=== PATIENT | male | born 1975 | race Caucasian/White ===

== ENCOUNTER 2018-05-28 05:50 | Day surgery (SDC) | payer OTHER ==
[~2018-05-28] VITALS: Ht 180.3 cm; Wt 93.0 kg
--- NOTE | 2018-05-28 08:05 | NUR ---
PT WAS RESTING, ALERT AND ORIENTED. I COULD TELL IMMEDIATELY THAT THE PT WAS SOMEWHAT UNNERVED BY THE EXPRESSION ON HIS FACE, AND THE WAY HE SPOKE TO ME. VERY RESPECTFUL, BUT FEARFUL. I SPENT TIME WORKING TO ENCOURAGE HIM, WITHOUT SHARING TOO MUCH INFORMATION. PT REQUESTED PRAYER, KAYLEY LIMA CAME IN TO CHECK WITH PT AND ENCOURAGE HIM WELL. WILL FOLLOW NEEDED
--- NOTE | 2018-05-28 10:07 | NUR ---
05/28/18 1007 Yris Rodriguez 0941 PT ARRIVED IN PACU SLEEPY. R SIDE OF NECK HAS DIMA INTACT AND COVERED WITH BACITRACIN. LUCAS DRAIN PRESENT. OXYGEN DECREASED TO 6L VIA MASK WITH SATS 100%. 0953 AWAKE C/O R SIDE NECK PAIN 5/10. FENTANYL 25MCG GIVEN IVP. OXYGEN REMOVED. SATS 95% ON RA. 1000 DR AT BEDSIDE TALKING WITH PT. TRANSPORT GUARDS AT BEDSIDE. 1002 C/O R SIDE NECK PAIN 7/10. FENTANYL 25MCG GIVEN IVP. ENCOURAGED DEEP BREATHING.
--- NOTE | 2018-05-28 10:33 | NUR ---
PATIENT RETURNED TO ROOM 10 AT 1025. PATIENT IS ON 2L OF 02 FOR SATS OF 96%. PATIENT HAS INCISION TO THE FRONT OF RIGHT EAR AND TO THE BACK OF RIGHT EAR/RIGHT NECK. INCISIONS ARE INTACT WITH SUTURES AND DIMA. LUCAS TO LOWER ASPECT OF NECK INCISION IS INTACT, TAPED TO CHEST, SEROSANGUOUS DRAINAGE NOTED IN TUBING. LUCAS TUBING STRIPPED TO MAINTAIN PATENCY. PATIENT IS VERY SLEEPY, AROUSABLE TO STIMULI, REPORTS PAIN 4/10 AND FALLS BACK TO SLEEP. X2 GUARDS IN ROOM WITH PATIENT. SCD'S ARE ON.
--- NOTE | 2018-05-28 10:39 | NUR ---
PATIENT TITRATED TO ROOM AIR AND SATS ARE 94 %
--- NOTE | 2018-05-28 11:10 | NUR ---
PATIENT OXYGEN SATS REMAIN 93-94% ON ROOM AIR. PATIENT HAS HAD SIPS OF WATER, HAS NOT HAD ANY FOOD YET. PATIENT IS MORE ORIENTED, REPORTS 4-5/10 DISCOMFORT, DENIES NEED FOR PAIN MEDICATION AT THIS TIME. PATIENT REPORTS NO PROBLEMS WITH SWALLOWING, NO SIGNIFICANT NECK OR FACIAL SWELLING NOTED.
[2018-05-28] MEDS ORDERED: NEOSPORIN OIN28.3 GM TOP (11:26)
[2018-05-28] MEDS ORDERED: NORCO 5-325 TA1 EACH PO (11:27)
[2018-05-28] MEDS ORDERED: CEFAZOLIN1 GM/10 M1 IV (11:28)
--- NOTE | 2018-05-28 11:49 | NUR ---
PATIENT TO DISCHARGE WITH #20 RIGHT HAND IV INTACT. PATIENT ATE CRACKERS AND PUDDING AND HAD ONE NORCO FOR 4/10 NECK "DISCOMFORT" VITALS REMAIN STABLE.
--- NOTE | 2018-05-28 12:22 | NUR ---
REPORT CALLED TO [facility].
--- NOTE | 2018-06-04 17:26 | OR ---
[facility] [address] [place], [place] [address] Signed DATE OF OPERATION: 05/28/2018 SURGEON: Sarabjit Fernandez MD PREOPERATIVE DIAGNOSIS: Right parotid mass. POSTOPERATIVE DIAGNOSIS: Right parotid mass. PROCEDURE PERFORMED: Right superficial parotidectomy with facial nerve dissection. NUTRITION MANAGER: Fabrizio Atkins MD. ANESTHESIA: General orotracheal, Fabrizio MAHONEY. PREOPERATIVE HISTORY: Mr. Kim is a 42-year-old man with a right parotid mass. 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 He was taken to the operating room for the above-mentioned procedures. OPERATIVE PROCEDURE AND FINDINGS: After informed consent, the patient was taken to the operating room, placed in the supine position, where general orotracheal anesthesia was induced. The patient and procedure were verified. The patient received preoperative intravenous Ancef. Parotid tumor was identified. It was hard, partially fixed deep to skin just in front of the tragus, measured about 2 x 3 cm. The patient was repositioned, shoulder roll placed, head turned to the left. Right face and neck were sterilely prepped and draped. A standard parotidectomy incision was made pretracheal down around the mastoid and onto the anterior neck. Incision was marked and then made with a #15 blade. Anterior flap was elevated in the fascial plane, taking care to avoid the tumor. Facial nerve was then identified at the stylomastoid foramen and branch was preserved throughout. The tumor was superior in the parotid over the orbicularis and frontalis branches. The main trunk of the nerve was dissected, followed out inferior branches not dissected, but identified. The tumor and superficial parotid tissue were then removed after identifying facial branches inferiorly, preserving them and sequentially identifying further branches more in a superior direction. The tumor was removed, sent to pathology Electronically Signed By: SARABJIT FERNANDEZ MD 06/04/18 1726 PATIENT NAME: EDE KIM OPERATIVE REPORT DATE OF : 77 REPORT #: [id number] PHYSICIAN: SARABJIT FERNANDEZ MD PCP: PUNEET MILTON MD REPORT IS CONFIDENTIAL AND NOT TO BE RELEASED WITHOUT AUTHORIZATION [facility] [address] [place], [place] [address] Signed in formalin with a good cuff of normal appearing parotid tissue. All branches were preserved and stimulated after this surgery adequately. The wound was copiously lavaged with saline. The hemostasis was verified. Hemostasis was obtained throughout the procedure with needle point cautery and LigaSure technology. After verification of hemostasis, wound was copiously lavaged with saline. Wound was then closed over a 7-mm flat Kishore drain exiting a separate stab wound inferiorly with #4-0 interrupted Vicryl subcu and #5-0 running nylon superiorly in the skin and suly inferiorly. The skin was cleansed. Neosporin was applied. The patient was then awakened, extubated, and transported to the recovery room in good condition. COMPLICATIONS: No complications. BLOOD LOSS: Minimal. SPECIMEN: To pathology. DRAIN: Flat Kishore drain. Sarabjit Fernandez MD GC/MODL /[id number] Copies: ~ Electronically Signed By: SARABJIT FERNANDEZ MD 06/04/18 1726 PATIENT NAME: EDE KIM OPERATIVE REPORT DATE OF : 77 REPORT #: [id number] PHYSICIAN: SARABJIT FERNANDEZ MD PCP: PUNEET MILTON MD REPORT IS CONFIDENTIAL AND NOT TO BE RELEASED WITHOUT AUTHORIZATION
--- NOTE | 2018-06-04 17:26 | PREHP ---
[facility] [address] [place], [place] [address] Signed ADMISSION DATE: 05/28/2018 CHIEF COMPLAINT: Right parotid mass. HISTORY: Mr. Kim is a 42-year-old man who discovered a lump in front of his right ear about 4-5 months ago. He is an inmate [facility] in [place]. He was eventually seen by Dr. 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 He is being taken to the operating room at this time for a superficial parotidectomy. PAST HISTORY/REVIEW OF SYSTEMS: Generally healthy. ALLERGIES: No allergies to medications. MEDICATIONS: No current medications. PAST SURGICAL HISTORY: He had a surgery on his hernia and a wrist fracture. SOCIAL HISTORY: He is an inmate. He is originally from [facility]. FAMILY HISTORY: Noncontributory. PHYSICAL EXAMINATION: VITAL SIGNS: Stable, afebrile. GENERAL: Well-developed, well-nourished male, in no distress. Exam with two corrections officers present. HEAD AND NECK: Shows a 2 x 3 cm round firm mass in the right parotid just anterior to the tragus. Nontender. Head and neck exam otherwise unremarkable. No cervical nodes. CHEST: Clear. HEART: Regular rate and rhythm. ABDOMEN: Benign. EXTREMITIES: Benign. NEUROLOGIC: Grossly intact including all branches of the facial nerve, right side. REVIEW OF RECORDS: Electronically Signed By: SARABJIT FERNANDEZ MD 06/04/18 1726 PATIENT NAME: EDE KIM PREOPERATIVE H&P DATE OF : 77 REPORT #: [id number] PHYSICIAN: SARABJIT FERNANDEZ MD PCP: PUNEET MILTON MD REPORT IS CONFIDENTIAL AND NOT TO BE RELEASED WITHOUT AUTHORIZATION [facility] [address] [place] [id number] Signed I have an office note from Dr. Roman from 04/25/2018, which I have reviewed. 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 IMPRESSION: Right parotid mass suspicious for neoplasia. RECOMMENDATIONS: Right superficial parotidectomy with facial nerve dissection. This is scheduled for a.m. May 28, 2018, at [facility], general anesthetic as an outpatient. The risks of surgery including bleeding, infection, facial nerve injury, need for further therapy, pending pathologic inspection of the tumor involved, explained, and accepted by Mr. Kim. He understands and desires to proceed. Sarabjit Fernandez MD /MODL /[id number] cc: Same Day Surgery MD Sarabjit Knox MD Copies: HUGH ROMAN MD, GARY MD ~ Electronically Signed By: SARABJIT FERNANDEZ MD 06/04/18 1726 PATIENT NAME: EDE KIM PREOPERATIVE H&P DATE OF : 77 REPORT #: [id number] PHYSICIAN: SARABJIT FERNANDEZ MD PCP: PUNEET MILTON MD REPORT IS CONFIDENTIAL AND NOT TO BE RELEASED WITHOUT AUTHORIZATION
== END 2018-05-28 12:00 | disposition home or self-care (01) ==
LOC: OPS 05:50 → DS 05:50 → OPS 06:45 → DS 06:45 → OPS 12:00
PROVIDERS: Otolaryngology
PROC: 0CB80ZZ Excision of Right Parotid Gland, Open Approach (ICD-10-PCS; principal; 2018-05-28 06:45)
DX: M72.4 Pseudosarcomatous fibromatosis (principal); Z79.899 Other long term (current) drug therapy
CPT/HCPCS: J0330; J0690; J1100; J1885; J2250; J2405; J2704; J2765; J3010; J7120